=== PATIENT | male | born 1945 | race American Indian/Alaskan Native ===

== ENCOUNTER 2018-07-16 15:22 | Inpatient (IN) | payer MEDICARE ==
[2018-07-16 18:21] VITALS: BMI 19.4
[2018-07-16] MEDS ORDERED: oxyCODONE 5 mg Immediate Release Tab PO PRN (18:53)
[2018-07-17 02:36] LABS: SQUAMOUS EPITHIAL < 1 /hpf (0-5); URINE BILIRUBIN NEGATIVE (NEGATIVE); URINE BLOOD NEGATIVE (NEGATIVE); URINE CLARITY CLEAR (Clear); URINE COLOR YELLOW (YELLOW); URINE GLUCOSE (UA) 50 mg/dL (Normal); URINE LEUKOCYTE ESTERASE NEG Leu/uL (Negative); URINE PROTEIN 30 mg/dL (NEGATIVE)
[2018-07-17] MEDS: oxyCODONE 10 mg ER Tab (oxyCONTIN) PO SCH ×3 (09:00→21:17)
[2018-07-17] MEDS: Enoxaparin 40 mg Syringe SC SCH (09:01)
--- NOTE | 2018-07-17 20:04 | CP.PCM.CON ---
History of Present Illness - History of Present Illness History of Present Illness: Dr Falcon PMR consultation on Aren Appiah, born 1945 who has been admitted to [facility]CU for MILAGROS following an elective left THR. He has already been up and down stairs. Not yet able to get to bathroom on his own. Making daily gains and is very motivated. 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 absent: Belching - Integumentary Integumentary: absent: Bleeding Lesions - Neurological Neurological: absent: Abnormal Hearing, Abnormal Movements, Disequilibrium, Lack of Coordination, Paresthesias - Psychiatric Psychiatric: absent: Anxiety Past Patient History - Past Medical History & Family History Past Medical History?: Yes - Past Social History Smoking Status: Never Smoked - CARDIAC Hx Cardiac Disorders: No Hx Hypercholesterolemia: Yes - PULMONARY Hx Respiratory Disorders: No - NEUROLOGICAL Hx Neurological Disorder: No - HEENT Hx HEENT Problems: No - RENAL Hx Chronic Kidney Disease: No - ENDOCRINE/METABOLIC Hx Endocrine Disorders: No - HEMATOLOGICAL/ONCOLOGICAL Hx Blood Disorders: No Hx AIDS: No Hx Human Immunodeficiency Virus (HIV): No - INTEGUMENTARY Hx Dermatological Problems: No - MUSCULOSKELETAL/RHEUMATOLOGICAL Hx Musculoskeletal Disorders: Yes Hx Arthritis: Yes (knees) Hx Falls: No - GASTROINTESTINAL Hx Gastrointestinal Disorders: No - GENITOURINARY/GYNECOLOGICAL Hx Genitourinary Disorders: No - PSYCHIATRIC Hx Emotional Abuse: No Hx Physical Abuse: No Hx Substance Use: No - SURGICAL HISTORY Hx Surgeries: Yes Hx Herniorrhaphy: Yes (bilateral inguinal) - ANESTHESIA Hx Anesthesia: Yes Hx Anesthesia Reactions: No (spinal anesthesia he feels hot) Hx Malignant Hyperthermia: No Meds Allergies/Adverse Reactions: Allergies Allergy/AdvReac Type Severity Reaction Status Date / Time No Known Allergies Allergy Verified 07/14/18 06:36 - Medications Medications: Current Medications Acetaminophen (Tylenol 325mg Tab) 650 mg PO Q4 PRN PRN Reason: for pain level 1-3 Acetaminophen (Tylenol 325mg Tab) 650 mg PO Q4 PRN PRN Reason: Temperature Last Admin: 07/16/18 22:36 Dose: 650 mg Celecoxib (Celebrex) 100 mg PO Q12 [facility] Last Admin: 07/17/18 09:01 Dose: 100 mg Cyanocobalamin (Vitamin B12 1000 Mcg Tab) 1,000 mcg PO DAILY [facility] Last Admin: 07/17/18 09:01 Dose: 1,000 mcg Docusate Sodium (Colace) 100 mg PO TID [facility] Last Admin: 07/17/18 16:34 Dose: 100 mg Enoxaparin Sodium (Lovenox) 40 mg SC DAILY [facility]; Protocol Last Admin: 07/17/18 09:01 Dose: 40 mg Ferrous Sulfate (Feosol) 325 mg PO BID [facility] Last Admin: 07/17/18 16:34 Dose: 325 mg Oxycodone HCl (Oxycodone Immediate Release Tab) 5 mg PO Q6 PRN PRN Reason: pain4-6 Oxycodone HCl (Oxycontin Extended Release Tab) 10 mg PO Q12 [facility] Stop: 07/19/18 21:01 Last Admin: 07/17/18 09:00 Dose: 10 mg Tramadol HCl (Ultram) 100 mg PO Q6 PRN PRN Reason: for pain level 7-10 Physical Exam - Constitutional Appears: Non-toxic, No Acute Distress - Head Exam Head Exam: ATRAUMATIC, NORMAL INSPECTION, NORMOCEPHALIC - Eye Exam Eye Exam: EOMI - ENT Exam ENT Exam: Mucous Membranes Moist - Respiratory Exam Respiratory Exam: NORMAL BREATHING PATTERN - Cardiovascular Exam Cardiovascular Exam: REGULAR RHYTHM - GI/Abdominal Exam GI & Abdominal Exam: Distended. absent: Firm - Extremities Exam Extremities exam: Negative for: calf tenderness - Neurological Exam Neurological exam: Alert, CN II-XII Intact, Oriented x3 - Psychiatric Exam Psychiatric exam: Normal Affect, Normal Mood - Skin Skin Exam: Warm Results - Vital Signs Recent Vital Signs: Last Vital Signs Temp 98.1 F 07/17/18 16:38 Pulse 104 H 07/17/18 16:38 Resp 20 07/17/18 16:38 BP 132/66 07/17/18 16:38 Pulse Ox 98 07/17/18 16:38 - Labs Labs: Laboratory Results - last 24 hr 07/16/18 21:25 Urine Color Yellow Urine Clarity Clear Urine pH 6.[address] 1.026 Urine Protein 30 Urine Glucose (UA) 50 Urine Ketones Trace Urine Blood Negative Urine Nitrate Negative Urine Bilirubin Negative Urine Urobilinogen 4.0 Ur Leukocyte Esterase Neg Urine RBC (Auto) 7 H Urine Microscopic WBC 2 Ur Squamous Epith Cells < 1 Assessment & Plan - Assessment and Plan (Free Text) Assessment: PT/OT to continue to help increase functional independence Pain: controlled Vascular: no evidence of DVT on prophylaxis GI: Awaiting bowel movement Patient continues to be an excellent TCU rehabilitation candidate and will have continued focused PT, OT and recreational therapy to help facilitate a safe and appropriate d/c plan
[2018-07-18] MEDS: oxyCODONE 10 mg ER Tab (oxyCONTIN) PO SCH ×2 (08:26→21:25)
[2018-07-18] MEDS: Enoxaparin 40 mg Syringe SC SCH (08:26)
--- NOTE | 2018-07-18 14:30 | RAD ---
Date of service: 07/17/2018 HISTORY: fever COMPARISON: No prior. TECHNIQUE: Chest PA and lateral FINDINGS: LUNGS: No active pulmonary disease. PLEURA: No significant pleural effusion identified. No pneumothorax apparent. CARDIOVASCULAR: No aortic atherosclerotic calcification present. Normal cardiac size. No pulmonary vascular congestion. OSSEOUS STRUCTURES: No significant abnormalities. VISUALIZED UPPER ABDOMEN: Normal. OTHER FINDINGS: None. IMPRESSION: No active disease.
--- NOTE | 2018-07-18 19:51 | CP.PCM.HP ---
History of Present Illness - History of Present Illness History of Present Illness: 73 y/o man w/ pmh of elevated LFT is admitted s/p left total hip replacement for rehabilitation services. no complaints of pain. had episode of fever overnight. no chills. no cough, sob, cp, abdominal pain, or headache. states very com fortable. Present on Admission - Present on Admission Any Indicators Present on Admission: No Review of Systems - Review of Systems All systems: reviewed and no additional remarkable complaints except (mentioned in HPI) Past Patient History - Past Medical History & Family History Past Medical History?: Yes - Past Social History Smoking Status: Never Smoked - CARDIAC Hx Cardiac Disorders: No Hx Hypercholesterolemia: Yes - PULMONARY Hx Respiratory Disorders: No - NEUROLOGICAL Hx Neurological Disorder: No - HEENT Hx HEENT Problems: No - RENAL Hx Chronic Kidney Disease: No - ENDOCRINE/METABOLIC Hx Endocrine Disorders: No - HEMATOLOGICAL/ONCOLOGICAL Hx Blood Disorders: No Hx AIDS: No Hx Human Immunodeficiency Virus (HIV): No - INTEGUMENTARY Hx Dermatological Problems: No - MUSCULOSKELETAL/RHEUMATOLOGICAL Hx Musculoskeletal Disorders: Yes Hx Arthritis: Yes (knees) Hx Falls: No - GASTROINTESTINAL Hx Gastrointestinal Disorders: No - GENITOURINARY/GYNECOLOGICAL Hx Genitourinary Disorders: No - PSYCHIATRIC Hx Emotional Abuse: No Hx Physical Abuse: No Hx Substance Use: No - SURGICAL HISTORY Hx Surgeries: Yes Hx Herniorrhaphy: Yes (bilateral inguinal) - ANESTHESIA Hx Anesthesia: Yes Hx Anesthesia Reactions: No (spinal anesthesia he feels hot) Hx Malignant Hyperthermia: No Meds Allergies/Adverse Reactions: Allergies Allergy/AdvReac Type Severity Reaction Status Date / Time No Known Allergies Allergy Verified 07/14/18 06:36 Physical Exam - Constitutional Appears: Well, Non-toxic - Head Exam Head Exam: NORMAL INSPECTION - Eye Exam Eye Exam: Normal appearance - Neck Exam Neck exam: Positive for: Normal Inspection - Respiratory Exam Respiratory Exam: Clear to Auscultation Bilateral, NORMAL BREATHING PATTERN - Cardiovascular Exam Cardiovascular Exam: REGULAR RHYTHM, RRR, +S1, +S2 - GI/Abdominal Exam GI & Abdominal Exam: Normal Bowel Sounds, Soft - Back Exam Back exam: NORMAL INSPECTION - Neurological Exam Neurological exam: Alert, Oriented x3 Results - Vital Signs Recent Vital Signs: Last Vital Signs Temp 98.4 F 07/18/18 16:53 Pulse 80 07/18/18 16:53 Resp 20 07/18/18 16:53 BP 127/59 L 07/18/18 16:53 Pulse Ox 99 07/18/18 16:53 Assessment & Plan - Assessment and Plan (Free Text) Assessment: 73 y/o man w/ pmh of elevated LFT is admitted s/p left total hip replacement. c/w PT/OT afebrile now f/u cultures obtain CXR - Date & Time Date: 07/17/18 Time: 11:00
--- NOTE | 2018-07-18 19:55 | CP.PCM.PN ---
Subjective - Date & Time of Evaluation Date of Evaluation: 07/18/18 Time of Evaluation: 14:00 - Subjective Subjective: patient seen and examined at bedside. no acute events overnight. states no BM since friday. no other complaints reported. Objective - Vital Signs/Intake and Output Vital Signs (last 24 hours): Temp Pulse Resp BP Pulse Ox 98.4 F 80 20 127/59 L 99 07/18/18 16:53 07/18/18 16:53 07/18/18 16:53 07/18/18 16:53 07/18/18 16:53 - Medications Medications: Current Medications Acetaminophen (Tylenol 325mg Tab) 650 mg PO Q4 PRN PRN Reason: for pain level 1-3 Acetaminophen (Tylenol 325mg Tab) 650 mg PO Q4 PRN PRN Reason: Temperature Last Admin: 07/16/18 22:36 Dose: 650 mg Celecoxib (Celebrex) 100 mg PO Q12 [facility] Last Admin: 07/18/18 08:27 Dose: 100 mg Cyanocobalamin (Vitamin B12 1000 Mcg Tab) 1,000 mcg PO DAILY [facility] Last Admin: 07/18/18 08:27 Dose: 1,000 mcg Docusate Sodium (Colace) 100 mg PO TID [facility] Last Admin: 07/18/18 16:20 Dose: 100 mg Enoxaparin Sodium (Lovenox) 40 mg SC DAILY [facility]; Protocol Last Admin: 07/18/18 08:26 Dose: 40 mg Ferrous Sulfate (Feosol) 325 mg PO BID [facility] Last Admin: 07/18/18 16:22 Dose: 325 mg Oxycodone HCl (Oxycodone Immediate Release Tab) 5 mg PO Q6 PRN PRN Reason: pain4-6 Oxycodone HCl (Oxycontin Extended Release Tab) 10 mg PO Q12 [facility] Stop: 07/19/18 21:01 Last Admin: 07/18/18 08:26 Dose: 10 mg Senna/Docusate Sodium (Senokot S 50 Mg-8.6 Mg) 1 tab PO HS [facility] Tramadol HCl (Ultram) 100 mg PO Q6 PRN PRN Reason: for pain level 7-10 - Additional Findings Additional findings: - Constitutional Appears: Well, Non-toxic - Head Exam Head Exam: NORMAL INSPECTION - Eye Exam Eye Exam: Normal appearance - Neck Exam Neck exam: Positive for: Normal Inspection - Respiratory Exam Respiratory Exam: Clear to Auscultation Bilateral, NORMAL BREATHING PATTERN - Cardiovascular Exam Cardiovascular Exam: REGULAR RHYTHM, RRR, +S1, +S2 - GI/Abdominal Exam GI & Abdominal Exam: Normal Bowel Sounds, Soft - Back Exam Back exam: NORMAL INSPECTION - Neurological Exam Neurological exam: Alert, Oriented x3 Assessment and Plan - Assessment and Plan (Free Text) Assessment: 73 y/o man w/ pmh of elevated LFT is admitted to TCU s/p left total hip replacement. c/w PT/OT afebrile now CXR unremarkable f/u cultures c/w IS start senokot S
[2018-07-18] MEDS ORDERED: Bisacodyl 5mg EC Tab PO ONE (20:17)
[2018-07-18] MEDS: Docusate-Senna 50 mg-8.6 mg Tab PO SCH (21:27)
[2018-07-19 08:24] LABS: HEMOGLOBIN 9.9 g/dL (12.0-18.0); MEAN CELL VOLUME 90.9 fl (80.0-94.0); MEAN CORPUSCULAR HEMOGLOBIN 30.5 pg (27.0-31.0); MEAN CORPUSCULAR HGB CONC 33.6 g/dL (33.0-37.0); RBC 3.24 Mil/uL (4.40-5.90); RED CELL DISTRIBUTION WIDTH 13.7 % (11.5-14.5); WHITE BLOOD COUNT 6.7 K/uL (4.8-10.8)
[2018-07-19 08:26] LABS: INR 1.1; PROTHROMBIN TIME 12.3 Seconds (9.8-13.1)
[2018-07-19 08:40] LABS: ALBUMIN 3.4 g/dL (3.5-5.0); ALT/SGPT 28 U/L (21-72); AST/SGOT 37 U/L (17-59); BLOOD UREA NITROGEN 14 mg/dl (9-20); CALCIUM 8.2 mg/dL (8.4-10.2); GFR NON-AFRICAN AMERICAN > 60
[2018-07-19] MEDS: oxyCODONE 10 mg ER Tab (oxyCONTIN) PO SCH ×2 (09:13→21:01)
[2018-07-19] MEDS: Enoxaparin 40 mg Syringe SC SCH (09:13)
--- NOTE | 2018-07-19 18:46 | CP.PCM.PN ---
Subjective - Date & Time of Evaluation Date of Evaluation: 07/19/18 Time of Evaluation: 11:00 - Subjective Subjective: patient seen and examined at bedside. no acute events overnight. no other complaints reported. Objective - Vital Signs/Intake and Output Vital Signs (last 24 hours): Temp Pulse Resp BP Pulse Ox 98.4 F 76 20 101/60 97 07/19/18 15:44 07/19/18 15:44 07/19/18 15:44 07/19/18 15:44 07/19/18 15:44 - Medications Medications: Current Medications Acetaminophen (Tylenol 325mg Tab) 650 mg PO Q4 PRN PRN Reason: for pain level 1-3 Acetaminophen (Tylenol 325mg Tab) 650 mg PO Q4 PRN PRN Reason: Temperature Last Admin: 07/16/18 22:36 Dose: 650 mg Celecoxib (Celebrex) 100 mg PO Q12 [facility] Last Admin: 07/19/18 09:12 Dose: 100 mg Cyanocobalamin (Vitamin B12 1000 Mcg Tab) 1,000 mcg PO DAILY [facility] Last Admin: 07/19/18 09:14 Dose: 1,000 mcg Docusate Sodium (Colace) 100 mg PO TID [facility] Last Admin: 07/19/18 16:35 Dose: 100 mg Enoxaparin Sodium (Lovenox) 40 mg SC DAILY [facility]; Protocol Last Admin: 07/19/18 09:13 Dose: 40 mg Famotidine (Pepcid) 20 mg PO ONCE ONE Stop: 07/19/18 20:19 Last Admin: 07/18/18 21:21 Dose: 20 mg Ferrous Sulfate (Feosol) 325 mg PO BID [facility] Last Admin: 07/19/18 16:37 Dose: 325 mg Lactulose (Enulose) 20 gm PO DAILY PRN PRN Reason: Constipation Last Admin: 07/19/18 14:35 Dose: 20 gm Oxycodone HCl (Oxycodone Immediate Release Tab) 5 mg PO Q6 PRN PRN Reason: pain4-6 Oxycodone HCl (Oxycontin Extended Release Tab) 10 mg PO Q12 [facility] Stop: 07/19/18 21:01 Last Admin: 07/19/18 09:13 Dose: 10 mg Senna/Docusate Sodium (Senokot S 50 Mg-8.6 Mg) 1 tab PO HS [facility] Last Admin: 07/18/18 21:27 Dose: Not Given Tramadol HCl (Ultram) 100 mg PO Q6 PRN PRN Reason: for pain level 7-10 - Labs Labs: 07/19/18 07:00 07/19/18 07:00 PT 12.3 Seconds (9.8-13.1) 07/19/18 07:00 INR 1.1 07/19/18 07:00 - Additional Findings Additional findings: - Constitutional Appears: Well, Non-toxic - Head Exam Head Exam: NORMAL INSPECTION - Eye Exam Eye Exam: Normal appearance - Neck Exam Neck exam: Positive for: Normal Inspection - Respiratory Exam Respiratory Exam: Clear to Auscultation Bilateral, NORMAL BREATHING PATTERN - Cardiovascular Exam Cardiovascular Exam: REGULAR RHYTHM, RRR, +S1, +S2 - GI/Abdominal Exam GI & Abdominal Exam: Normal Bowel Sounds, Soft - Neurological Exam Neurological exam: Alert, Oriented x3 Assessment and Plan - Assessment and Plan (Free Text) Assessment: 73 y/o man w/ pmh of elevated LFT is admitted to TCU s/p left total hip replacement. c/w PT/OT c/w meds as ordered monitor BMs ortho following
[2018-07-19] MEDS: Docusate-Senna 50 mg-8.6 mg Tab PO SCH (21:01)
[2018-07-20 08:24] VITALS: RESP 20
[2018-07-20] MEDS: Enoxaparin 40 mg Syringe SC SCH (08:28)
[2018-07-20] MEDS: oxyCODONE 10 mg ER Tab (oxyCONTIN) PO SCH ×2 (09:10→20:40)
--- NOTE | 2018-07-20 11:41 | CP.PCM.PN ---
Subjective - Date & Time of Evaluation Date of Evaluation: 07/20/18 Time of Evaluation: 08:00 - Subjective Subjective: Patient seen and examined at bedside comfortable. Pain well controlled with oral meds. Tolerating PT well. No new complaints. Denies CP/SOB/fever/TURNER. Objective - Vital Signs/Intake and Output Vital Signs (last 24 hours): Temp Pulse Resp BP Pulse Ox 98.4 F 86 20 118/62 99 07/20/18 08:22 07/20/18 09:47 07/20/18 08:22 07/20/18 09:47 07/20/18 09:47 - Medications Medications: Current Medications Acetaminophen (Tylenol 325mg Tab) 650 mg PO Q4 PRN PRN Reason: for pain level 1-3 Acetaminophen (Tylenol 325mg Tab) 650 mg PO Q4 PRN PRN Reason: Temperature Last Admin: 07/16/18 22:36 Dose: 650 mg Celecoxib (Celebrex) 100 mg PO Q12 [facility] Last Admin: 07/20/18 08:29 Dose: 100 mg Cyanocobalamin (Vitamin B12 1000 Mcg Tab) 1,000 mcg PO DAILY [facility] Last Admin: 07/20/18 08:29 Dose: 1,000 mcg Docusate Sodium (Colace) 100 mg PO TID [facility] Last Admin: 07/20/18 08:29 Dose: 100 mg Enoxaparin Sodium (Lovenox) 40 mg SC DAILY [facility]; Protocol Last Admin: 07/20/18 08:28 Dose: 40 mg Ferrous Sulfate (Feosol) 325 mg PO BID [facility] Last Admin: 07/20/18 08:29 Dose: 325 mg Lactulose (Enulose) 20 gm PO DAILY PRN PRN Reason: Constipation Last Admin: 07/19/18 14:35 Dose: 20 gm Oxycodone HCl (Oxycodone Immediate Release Tab) 5 mg PO Q6 PRN PRN Reason: pain4-6 Oxycodone HCl (Oxycontin Extended Release Tab) 10 mg PO Q12 [facility] Stop: 07/23/18 09:01 Last Admin: 07/20/18 09:10 Dose: 10 mg Senna/Docusate Sodium (Senokot S 50 Mg-8.6 Mg) 1 tab PO HS [facility] Last Admin: 07/19/18 21:01 Dose: 1 tab Tramadol HCl (Ultram) 100 mg PO Q6 PRN PRN Reason: for pain level 7-10 - Labs Labs: 07/19/18 07:00 07/19/18 07:00 PT 12.3 Seconds (9.8-13.1) 07/19/18 07:00 INR 1.1 07/19/18 07:00 - Extremities Exam Additional comments: L hip: mild to mod diffuse swelling 2nd to surgery Aquacel dressing in place with dry bloody drainage Wound CDI with javid, no drainage sensation intact SP/DP/TN motor intact EHL/FHl/TA/G Assessment and Plan (1) Status post total hip replacement, left Assessment & Plan: POD#6 s/p L RADHA doing well -PT/OT WBAT with assistive device -posterior hip precations -abd pillow while in bed -dressings changed -DVT ppx -above d/w Dr. Jason in agreement Status: Acute
--- NOTE | 2018-07-20 17:39 | CP.PCM.PN ---
Subjective - Date & Time of Evaluation Date of Evaluation: 07/20/18 Time of Evaluation: 17:38 - Subjective Subjective: Patient seen in the room had a large BM finally the previous night pain is better controlled denies sob/cp continue with current care when the oxycontin runs out it will not be renewed, that should be a sufficient course Objective - Vital Signs/Intake and Output Vital Signs (last 24 hours): Temp Pulse Resp BP Pulse Ox 98.4 F 84 20 120/67 100 07/20/18 16:51 07/20/18 16:51 07/20/18 16:51 07/20/18 16:51 07/20/18 16:51 - Medications Medications: Current Medications Acetaminophen (Tylenol 325mg Tab) 650 mg PO Q4 PRN PRN Reason: for pain level 1-3 Acetaminophen (Tylenol 325mg Tab) 650 mg PO Q4 PRN PRN Reason: Temperature Last Admin: 07/16/18 22:36 Dose: 650 mg Celecoxib (Celebrex) 100 mg PO Q12 [facility] Last Admin: 07/20/18 08:29 Dose: 100 mg Cyanocobalamin (Vitamin B12 1000 Mcg Tab) 1,000 mcg PO DAILY [facility] Last Admin: 07/20/18 08:29 Dose: 1,000 mcg Docusate Sodium (Colace) 100 mg PO TID [facility] Last Admin: 07/20/18 16:05 Dose: Not Given Enoxaparin Sodium (Lovenox) 40 mg SC DAILY [facility]; Protocol Last Admin: 07/20/18 08:28 Dose: 40 mg Ferrous Sulfate (Feosol) 325 mg PO BID [facility] Last Admin: 07/20/18 16:05 Dose: 325 mg Lactulose (Enulose) 20 gm PO DAILY PRN PRN Reason: Constipation Last Admin: 07/19/18 14:35 Dose: 20 gm Oxycodone HCl (Oxycodone Immediate Release Tab) 5 mg PO Q6 PRN PRN Reason: pain4-6 Oxycodone HCl (Oxycontin Extended Release Tab) 10 mg PO Q12 [facility] Stop: 07/23/18 09:01 Last Admin: 07/20/18 09:10 Dose: 10 mg Senna/Docusate Sodium (Senokot S 50 Mg-8.6 Mg) 1 tab PO [facility] Last Admin: 07/19/18 21:01 Dose: 1 tab Tramadol HCl (Ultram) 100 mg PO Q6 PRN PRN Reason: for pain level 7-10 - Labs Labs: 07/19/18 07:00 07/19/18 07:00 PT 12.3 Seconds (9.8-13.1) 07/19/18 07:00 INR 1.1 07/19/18 07:00
--- NOTE | 2018-07-20 19:07 | CP.PCM.PN ---
Subjective - Date & Time of Evaluation Date of Evaluation: 07/20/18 Time of Evaluation: 10:00 - Subjective Subjective: patient seen and examined at bedside. no acute events overnight. no other complaints reported. Objective - Vital Signs/Intake and Output Vital Signs (last 24 hours): Temp Pulse Resp BP Pulse Ox 98.4 F 84 20 120/67 100 07/20/18 16:51 07/20/18 16:51 07/20/18 16:51 07/20/18 16:51 07/20/18 16:51 - Medications Medications: Current Medications Acetaminophen (Tylenol 325mg Tab) 650 mg PO Q4 PRN PRN Reason: for pain level 1-3 Acetaminophen (Tylenol 325mg Tab) 650 mg PO Q4 PRN PRN Reason: Temperature Last Admin: 07/16/18 22:36 Dose: 650 mg Celecoxib (Celebrex) 100 mg PO Q12 [facility] Last Admin: 07/20/18 08:29 Dose: 100 mg Cyanocobalamin (Vitamin B12 1000 Mcg Tab) 1,000 mcg PO DAILY [facility] Last Admin: 07/20/18 08:29 Dose: 1,000 mcg Docusate Sodium (Colace) 100 mg PO TID [facility] Last Admin: 07/20/18 16:05 Dose: Not Given Enoxaparin Sodium (Lovenox) 40 mg SC DAILY [facility]; Protocol Last Admin: 07/20/18 08:28 Dose: 40 mg Ferrous Sulfate (Feosol) 325 mg PO BID [facility] Last Admin: 07/20/18 16:05 Dose: 325 mg Lactulose (Enulose) 20 gm PO DAILY PRN PRN Reason: Constipation Last Admin: 07/19/18 14:35 Dose: 20 gm Oxycodone HCl (Oxycodone Immediate Release Tab) 5 mg PO Q6 PRN PRN Reason: pain4-6 Oxycodone HCl (Oxycontin Extended Release Tab) 10 mg PO Q12 [facility] Stop: 07/23/18 09:01 Last Admin: 07/20/18 09:10 Dose: 10 mg Senna/Docusate Sodium (Senokot S 50 Mg-8.6 Mg) 1 tab PO HS [facility] Last Admin: 07/19/18 21:01 Dose: 1 tab Tramadol HCl (Ultram) 100 mg PO Q6 PRN PRN Reason: for pain level 7-10 - Labs Labs: 07/19/18 07:00 07/19/18 07:00 PT 12.3 Seconds (9.8-13.1) 07/19/18 07:00 INR 1.1 07/19/18 07:00 - Additional Findings Additional findings: - Constitutional Appears: Well, Non-toxic - Head Exam Head Exam: NORMAL INSPECTION - Eye Exam Eye Exam: Normal appearance - Neck Exam Neck exam: Positive for: Normal Inspection - Respiratory Exam Respiratory Exam: Clear to Auscultation Bilateral, NORMAL BREATHING PATTERN - Cardiovascular Exam Cardiovascular Exam: REGULAR RHYTHM, RRR, +S1, +S2 - GI/Abdominal Exam GI & Abdominal Exam: Normal Bowel Sounds, Soft - Neurological Exam Neurological exam: Alert, Oriented x3 Assessment and Plan - Assessment and Plan (Free Text) Assessment: 73 y/o man w/ pmh of elevated LFT is admitted to TCU s/p left total hip replacement. c/w PT/OT c/w meds as ordered monitor BMs ortho following
[2018-07-20] MEDS: Docusate-Senna 50 mg-8.6 mg Tab PO SCH (21:08)
[2018-07-21] MEDS: Enoxaparin 40 mg Syringe SC SCH (08:17)
[2018-07-21] MEDS: oxyCODONE 10 mg ER Tab (oxyCONTIN) PO SCH ×2 (08:20→20:43)
[2018-07-21] MEDS: Docusate-Senna 50 mg-8.6 mg Tab PO SCH (21:11)
[2018-07-22] MEDS: Enoxaparin 40 mg Syringe SC SCH (08:10)
[2018-07-22] MEDS: oxyCODONE 10 mg ER Tab (oxyCONTIN) PO SCH ×2 (08:10→21:13)
--- NOTE | 2018-07-22 17:27 | CP.PCM.PN ---
Subjective - Date & Time of Evaluation Date of Evaluation: 07/22/18 Time of Evaluation: 13:00 - Subjective Subjective: Patient seen and examined at bedside comfortable. Pain is improved, well controlled with PO. No new complaints. Objective - Vital Signs/Intake and Output Vital Signs (last 24 hours): Temp Pulse Resp BP Pulse Ox 97.0 F L 94 H 20 121/67 99 07/22/18 16:50 07/22/18 16:50 07/22/18 16:50 07/22/18 16:50 07/22/18 16:50 - Medications Medications: Current Medications Acetaminophen (Tylenol 325mg Tab) 650 mg PO Q4 PRN PRN Reason: for pain level 1-3 Acetaminophen (Tylenol 325mg Tab) 650 mg PO Q4 PRN PRN Reason: Temperature Last Admin: 07/16/18 22:36 Dose: 650 mg Celecoxib (Celebrex) 100 mg PO Q12 [facility] Last Admin: 07/22/18 08:11 Dose: 100 mg Cyanocobalamin (Vitamin B12 1000 Mcg Tab) 1,000 mcg PO DAILY [facility] Last Admin: 07/22/18 08:11 Dose: 1,000 mcg Docusate Sodium (Colace) 100 mg PO TID [facility] Last Admin: 07/22/18 16:44 Dose: 100 mg Enoxaparin Sodium (Lovenox) 40 mg SC DAILY [facility]; Protocol Last Admin: 07/22/18 08:10 Dose: 40 mg Ferrous Sulfate (Feosol) 325 mg PO BID [facility] Last Admin: 07/22/18 16:44 Dose: 325 mg Lactulose (Enulose) 20 gm PO DAILY PRN PRN Reason: Constipation Last Admin: 07/19/18 14:35 Dose: 20 gm Oxycodone HCl (Oxycodone Immediate Release Tab) 5 mg PO Q6 PRN PRN Reason: pain4-6 Oxycodone HCl (Oxycontin Extended Release Tab) 10 mg PO Q12 [facility] Stop: 07/23/18 09:01 Last Admin: 07/22/18 08:10 Dose: 10 mg Senna/Docusate Sodium (Senokot S 50 Mg-8.6 Mg) 1 tab PO [facility] Last Admin: 07/21/18 21:11 Dose: 1 tab Tramadol HCl (Ultram) 100 mg PO Q6 PRN PRN Reason: for pain level 7-10 - Labs Labs: 07/19/18 07:00 07/19/18 07:00 PT 12.3 Seconds (9.8-13.1) 07/19/18 07:00 INR 1.1 07/19/18 07:00 - Extremities Exam Additional comments: L hip: mild diffuse swelling 2nd to surgery Dressings CDI sensation intact SP/DP/TN motor intact EHL/FHl/TA/G pedal pulses intact calves soft NT b/l Assessment and Plan (1) Status post total hip replacement, left Assessment & Plan: POD#8 s/p L RADHA doing well -PT/OT WBAT with assistive device -posterior hip precations -abd pillow while in bed -DVT ppx -above d/w Dr. Jason in agreement Status: Acute
[2018-07-22] MEDS: Docusate-Senna 50 mg-8.6 mg Tab PO SCH (21:13)
[2018-07-23] MEDS: oxyCODONE 10 mg ER Tab (oxyCONTIN) PO SCH ×2 (08:32→21:02)
[2018-07-23] MEDS: Enoxaparin 40 mg Syringe SC SCH (08:33)
--- NOTE | 2018-07-23 14:02 | CP.PCM.PN ---
Subjective - Date & Time of Evaluation Date of Evaluation: 07/23/18 Time of Evaluation: 14:01 - Subjective Subjective: Patient seen in the PT gym making good gains with single stance pain is well controlled still needs a BM and I spoke with nursing to given the prn lactulose Objective - Vital Signs/Intake and Output Vital Signs (last 24 hours): Temp Pulse Resp BP Pulse Ox 97.5 F L 71 20 113/59 L 99 07/23/18 08:22 07/23/18 08:22 07/23/18 08:22 07/23/18 08:22 07/23/18 08:22 - Medications Medications: Current Medications Acetaminophen (Tylenol 325mg Tab) 650 mg PO Q4 PRN PRN Reason: for pain level 1-3 Acetaminophen (Tylenol 325mg Tab) 650 mg PO Q4 PRN PRN Reason: Temperature Last Admin: 07/16/18 22:36 Dose: 650 mg Celecoxib (Celebrex) 100 mg PO Q12 [facility] Last Admin: 07/23/18 08:33 Dose: 100 mg Cyanocobalamin (Vitamin B12 1000 Mcg Tab) 1,000 mcg PO DAILY [facility] Last Admin: 07/23/18 08:34 Dose: 1,000 mcg Docusate Sodium (Colace) 100 mg PO TID [facility] Last Admin: 07/23/18 12:29 Dose: 100 mg Enoxaparin Sodium (Lovenox) 40 mg SC DAILY [facility]; Protocol Last Admin: 07/23/18 08:33 Dose: 40 mg Ferrous Sulfate (Feosol) 325 mg PO BID [facility] Last Admin: 07/23/18 08:33 Dose: 325 mg Lactulose (Enulose) 20 gm PO DAILY PRN PRN Reason: Constipation Last Admin: 07/19/18 14:35 Dose: 20 gm Oxycodone HCl (Oxycodone Immediate Release Tab) 5 mg PO Q6 PRN PRN Reason: pain4-6 Oxycodone HCl (Oxycontin Extended Release Tab) 10 mg PO Q12 [facility] Stop: 07/26/18 21:01 Senna/Docusate Sodium (Senokot S 50 Mg-8.6 Mg) 1 tab PO HS [facility] Last Admin: 07/22/18 21:13 Dose: 1 tab Tramadol HCl (Ultram) 100 mg PO Q6 PRN PRN Reason: for pain level 7-10 - Labs Labs: 07/19/18 07:00 07/19/18 07:00 PT 12.3 Seconds (9.8-13.1) 07/19/18 07:00 INR 1.1 07/19/18 07:00
[2018-07-23] MEDS: Docusate-Senna 50 mg-8.6 mg Tab PO SCH (21:09)
[2018-07-24] MEDS: oxyCODONE 10 mg ER Tab (oxyCONTIN) PO SCH (08:20)
[2018-07-24] MEDS: Enoxaparin 40 mg Syringe SC SCH (08:21)
--- NOTE | 2018-07-24 12:48 | CP.PCM.PN ---
Subjective - Date & Time of Evaluation Date of Evaluation: 07/24/18 Time of Evaluation: 12:46 - Subjective Subjective: Patient states he is doing well, minimal pain. No new complaints. Objective - Vital Signs/Intake and Output Vital Signs (last 24 hours): Temp Pulse Resp BP Pulse Ox 98.1 F 77 20 113/56 L 96 07/24/18 08:15 07/24/18 08:15 07/24/18 08:15 07/24/18 08:15 07/24/18 08:15 - Medications Medications: Current Medications Acetaminophen (Tylenol 325mg Tab) 650 mg PO Q4 PRN PRN Reason: for pain level 1-3 Acetaminophen (Tylenol 325mg Tab) 650 mg PO Q4 PRN PRN Reason: Temperature Last Admin: 07/16/18 22:36 Dose: 650 mg Celecoxib (Celebrex) 100 mg PO Q12 [facility] Last Admin: 07/24/18 08:20 Dose: 100 mg Cyanocobalamin (Vitamin B12 1000 Mcg Tab) 1,000 mcg PO DAILY [facility] Last Admin: 07/24/18 08:21 Dose: 1,000 mcg Docusate Sodium (Colace) 100 mg PO TID [facility] Last Admin: 07/24/18 12:18 Dose: Not Given Enoxaparin Sodium (Lovenox) 40 mg SC DAILY [facility]; Protocol Last Admin: 07/24/18 08:21 Dose: 40 mg Ferrous Sulfate (Feosol) 325 mg PO BID [facility] Last Admin: 07/24/18 08:20 Dose: 325 mg Lactulose (Enulose) 20 gm PO DAILY PRN PRN Reason: Constipation Last Admin: 07/23/18 14:54 Dose: 20 gm Oxycodone HCl (Oxycodone Immediate Release Tab) 5 mg PO Q6 PRN PRN Reason: pain4-6 Oxycodone HCl (Oxycontin Extended Release Tab) 10 mg PO Q12 [facility] Stop: 07/26/18 21:01 Last Admin: 07/24/18 08:20 Dose: 10 mg Senna/Docusate Sodium (Senokot S 50 Mg-8.6 Mg) 1 tab PO [facility] Last Admin: 07/23/18 21:09 Dose: Not Given Tramadol HCl (Ultram) 100 mg PO Q6 PRN PRN Reason: for pain level 7-10 - Labs Labs: 07/19/18 07:00 07/19/18 07:00 PT 12.3 Seconds (9.8-13.1) 07/19/18 07:00 INR 1.1 07/19/18 07:00 - Extremities Exam Additional comments: Left hip incision dry, intact, no erythema. +ROM ankle/toes, sensation intact +DP/PT pulses calves soft NTneg homans Assessment and Plan (1) Status post total hip replacement, left Assessment & Plan: for d/c home today cont aspirin 325mg PO BID for VTE proph f/u Dr. Jason at scheduled appt maintain posterior hip precautions and pillow in bed d/w Dr. Jason, ortho stable, agrees with above Status: Acute
[2018-07-24 15:47] VITALS: BP 110/63; PULSE 81; TEMP 97.3; O2SAT 97
--- NOTE | 2018-07-24 17:29 | CP.PCM.DIS ---
Provider - Provider Date of Admission: 07/16/18 18:29 Attending physician: Daron Tijerina MD Primary care physician: Marc Matt DO Consults: Orthopedic Surgery: Dr Jason Time Spent in preparation of Discharge (in minutes): 25 Diagnosis - Discharge Diagnosis (1) Status post total hip replacement, left Status: Acute Comment: Continue outpatient surveillance Hospital Course - Lab Results Lab Results: Micro Results 07/16/18 22:29 Blood-Venous Blood Culture - Final NO GROWTH AFTER 5 DAYS 07/16/18 09:03 Urine,Clean Catch Urine Culture - Final No Growth (<1,000 CFU/ML) Most Recent Lab Values WBC 6.7 K/uL (4.8-10.8) 07/19/18 07:00 RBC 3.24 Mil/uL (4.40-5.90) L 07/19/18 07:00 Hgb 9.9 g/dL (12.0-18.0) L 07/19/18 07:00 Hct 29.4 % (35.0-51.0) L 07/19/18 07:00 MCV 90.9 fl (80.0-94.0) 07/19/18 07:00 MCH 30.5 pg (27.0-31.0) 07/19/18 07:00 MCHC 33.6 g/dL (33.0-37.0) 07/19/18 07:00 RDW 13.7 % (11.5-14.5) 07/19/18 07:00 Plt Count 164 K/uL (130-400) 07/19/18 07:00 PT 12.3 Seconds (9.8-13.1) 07/19/18 07:00 INR 1.1 07/19/18 07:00 Sodium 138 mmol/l (132-148) 07/19/18 07:00 Potassium 3.7 MMOL/L (3.6-5.0) 07/19/18 07:00 Chloride 102 mmol/L (98-107) 07/19/18 07:00 Carbon Dioxide 29 mmol/L (22-30) 07/19/18 07:00 Anion Gap 11 (10-20) 07/19/18 07:00 BUN 14 mg/dl (9-20) 07/19/18 07:00 Creatinine 0.8 mg/dl (0.8-1.5) 07/19/18 07:00 Est GFR ( Amer) > 60 07/19/18 07:00 Est GFR (Non-Af Amer) > 60 07/19/18 07:00 Random Glucose 121 mg/dL (75-110) H 07/19/18 07:00 Calcium 8.2 mg/dL (8.4-10.2) L 07/19/18 07:00 Total Bilirubin 0.9 mg/dl (0.2-1.3) 07/19/18 07:00 AST 37 U/L (17-59) 07/19/18 07:00 ALT 28 U/L (21-72) 07/19/18 07:00 Alkaline Phosphatase 40 U/L (38-126) 07/19/18 07:00 Total Protein 6.8 G/DL (6.3-8.2) 07/19/18 07:00 Albumin 3.4 g/dL (3.5-5.0) L 07/19/18 07:00 Globulin 3.3 gm/dL (2.2-3.9) 07/19/18 07:00 Albumin/Globulin Ratio 1.0 (1.0-2.1) 07/19/18 07:00 Urine Color Yellow (YELLOW) 07/16/18 21:25 Urine Clarity Clear (Clear) 07/16/18 21:25 Urine pH 6.0 (5.0-8.0) 07/16/18 21:25 Ur Specific Burchard 1.026 (1.003-1.030) 07/16/18 21:25 Urine Protein 30 mg/dL (NEGATIVE) 07/16/18 21:25 Urine Glucose (UA) 50 mg/dL (Normal) 07/16/18 21:25 Urine Ketones Trace mg/dL (NEGATIVE) 07/16/18 21:25 Urine Blood Negative (NEGATIVE) 07/16/18 21:25 Urine Nitrate Negative (NEGATIVE) 07/16/18 21:25 Urine Bilirubin Negative (NEGATIVE) 07/16/18 21: Urine Urobilinogen 4.0 mg/dL (0.2-1.0) 07/16/18 21:25 Ur Leukocyte Esterase Neg Hans/uL (Negative) 07/16/18 21:25 Urine RBC (Auto) 7 /hpf (0-3) H 07/16/18 21:25 Urine Microscopic WBC 2 /hpf (0-5) 07/16/18 21:25 Ur Squamous Epith Cells < 1 /hpf (0-5) 07/16/18 21:25 - Hospital Course Hospital Course: 73 y/o M with a PMHx of elevated LFT was admitted to TCU s/p left total hip replacement for physical therapy and rehabilitation services. Hospitalization complicated with fever on his first night, controlled with PO Tylenol. CBC, chest X-ray, blood culture and urine culture ruled out infection. Since then, pt was able to complete physical therapy sessions. Pt remained afebrile, tolerating PO, stable on the rest of admission. Today, pt will be discharged home, meds reconciled, instructed to f/u with Dr Jason within 1 week, appt already set. - Date & Time of H&P Date of H&P: 07/17/18 Time of H&P: 17:50 Discharge Exam - Additional Findings Additional findings: - Constitutional Appears: Well, Non-toxic - Head Exam Head Exam: NORMAL INSPECTION - Eye Exam Eye Exam: Normal appearance - Neck Exam Neck exam: Positive for: Normal Inspection - Respiratory Exam Respiratory Exam: Clear to Auscultation Bilateral, NORMAL BREATHING PATTERN - Cardiovascular Exam Cardiovascular Exam: REGULAR RHYTHM, RRR, +S1, +S2 - GI/Abdominal Exam GI & Abdominal Exam: Normal Bowel Sounds, Soft - Neurological Exam Neurological exam: Alert, Oriented x3 Discharge Plan - Follow Up Plan Condition: GOOD Disposition: HOME/ ROUTINE Instructions: Total Hip Replacement (DC), Preventing Falls, Total Hip Car Transfer, Postop Total Hip Replacement Exercises Lying Down, Postop Total Hip Replacement Exercises Standing Additional Instructions: FOLLOW UP WITH DR. JASON APPOINTMENT MADE FOR YOU Referrals: Rocky Jason MD [Staff Provider] - Marc Matt DO [Primary Care Provider] -
== END 2018-07-24 18:31 | disposition home health service (06) | DRG 561 ==
LOC: H.TCU 18:29
PROVIDERS: ADMIT Family Medicine; ATTEND Family Medicine
PROC: F07Z9FZ Gait Training/Functional Ambulation Treatment using Assistive, Adaptive, Supportive or Protective Equipment (ICD-10-PCS; principal; 2018-07-16)
PROC: F08Z4FZ Home Management Treatment using Assistive, Adaptive, Supportive or Protective Equipment (ICD-10-PCS; 2018-07-16)
PROC: F07L6FZ Therapeutic Exercise Treatment of Musculoskeletal System - Lower Back / Lower Extremity using Assistive, Adaptive, Supportive or Protective Equipment (ICD-10-PCS; 2018-07-16)
DX: Z47.1 Aftercare following joint replacement surgery (principal); Z96.642 Presence of left artificial hip joint; M16.12 Unilateral primary osteoarthritis, left hip; E78.00 Pure hypercholesterolemia, unspecified